=== PATIENT | female | born 1995 | race Caucasian/White ===

== ENCOUNTER → 2016-09-13 | Day surgery (SDC) | payer BC ==
[2016-06-30 11:40] VITALS: BMI 24.5
[~2016-09-13] MED LIST: CEFAZOLIN 1 GM VIAL ONE; FENTANYL 100 MCG/2 ML VIAL IV PRN; FENTANYL 100 MCG/2 ML VIAL ONE; HYDROCODONE 5 MG/ACETAMIN 325 MG TAB ONE; HYDROmorphone 1 MG INJECTION IV PRN; LABETALOL 20 MG/4 ML SYRINGE IV PRN; MEPERIDINE 25 MG/ML TUBEX IV PRN; ONDANSETRON HCL 4 MG ODT TAB PO PRN; ONDANSETRON HCL 4 MG/2 ML VIAL IV PRN; PROMETHAZINE 25 MG/ML VIAL IV PRN; hydrALAZINE 20 MG/ML VIAL IV PRN
--- NOTE | 2016-09-13 07:47 | SC.ANESPOS ---
Post-Anesthesia Note LOC: [facility] Post-Anesthesia Assessment: Awake, Returned to Baseline, Hemodynamically Stable , Pain Control Adequate Phase I & II Recovery Complete: Yes Apparent Anesthesia Complication: No : N PACU Discharge Time: 10:20 - Vital Signs Blood Pressure: 99/54 Pulse: 74 Resp Rate: 16 O2 Sat: 100 Temp: 99 F - Comments Anesthesia Discharge Time Report Time 10:20
[2016-09-13 07:48] LABS: MPV 8.3 fL (7.4-10.4)
--- NOTE | 2016-09-13 07:53 | HIM.ANES ---
Anesthesia Evaluation & Plan - Focused Review of Systems Cardiac History: No: Hx Cardiac Disorders HEENT: No: Other HEENT Problems Gastrointestinal: No: Hx Gastroesophageal Reflux Disease, Hx Gastrointestinal Disorders Neurological/Musculoskeletal: No: Hx Neurological Disorders Psychological: No Hx Depression, No Hx Mental/Emotional Disorders Blood/Autoimmune: No: Hx AIDS, Hx Hepatitis (type) Smoking Status: Never smoker - Focused Physical Exam Mallampati: Class II Thyromental Distance: Greater than 3 Neck: Full Range of Motion Dental: Normal - no significant findings Cardiovascular/Chest: Normal Respiratory: Lungs clear Any problems with anesthesia, including nausea and vomiting?: No Any relatives with a history of Malignant Hyperthermia?: No Does patient have a history of Malignant Hyperthermia?: No Beta Elba given (if appropriate): N/A Other: Problem List Problem Status Onset Hemorrhagic cyst of ovary Acute CBC/BMP/Other 09/13/16 07:36 Allergies Allergy/AdvReac Type Severity Reaction Status Date / Time No Known Allergies Allergy Verified 06/30/16 11:40 Home Medications Medication Instructions Recorded Last Taken Type ClonazePAM [Klonopin] 0.5 mg PO DAILY PRN 06/30/16 2 Weeks Ago History Hydrocodone Bit/Acetaminophen 1 tab PO Q4-6H PRN #15 tab 06/30/16 Unknown Rx [Lortab 5/325] Ibuprofen [Advil] 800 mg PO Q6H PRN 06/30/16 06/28/16 History Norethindrone-E.estradiol-Iron [Lo 1 each PO DAILY 06/30/16 06/29/16 History Loestrin Fe 1-10 Tablet] Ondansetron HCl [Zofran] 4 mg PO Q8H PRN #15 tab 06/30/16 Unknown Rx Height and Weight Patient's height 5 ft 4 in Patient's weight 143 lb BMI 24.5 - Anesthetic Plan Anesthesia Type: General ASA Class: 1 -: I have examined this patient and reviewed the medical record. The patient has been assessed prior to anesthesia. Risks and benefits of anesthesia and anesthetic technique options have been discussed and all questions answered. The patient accepts the risk and desires me to proceed with the planned anesthetic.
[2016-09-13 08:25] LABS: BLOOD UREA NITROGEN 11 MG/DL (7-17); CALCIUM 9.4 MG/DL (8.4-10.2); CALCULATED OSMOLALITY 265 MOs/Kg (270-290); CHLORIDE 101 mEq/L (98-107); GLUCOSE 90 MG/DL (70-99); SODIUM LEVEL 138 mEq/L (137-146)
--- NOTE | 2016-09-13 09:22 | HIMOPRPT ---
DESCRIPTION OF PROCEDURE: DATE OF PROCEDURE: 09/13/16 PREOPERATIVE DIAGNOSIS: Missed . POSTOPERATIVE DIAGNOSIS: Missed . PROCEDURE: Suction dilation and curettage. SURGEON: Ilda Alvarez DO ANESTHESIA: General. COMPLICATIONS: None. ESTIMATED BLOOD LOSS: 200 mL.. URINE OUTPUT: 100 mL of clear urine drained at the beginning of procedure. SPECIMENS: Products of conception. PROCEDURE IN DETAIL: The patient was taken to the operating room. She was prepped and draped in a sterile fashion. A red rubber catheter was inserted. Approximately 100 mL of clear urine was drained from the bladder. A weighted speculum was inserted. The cervix was visualized. Anterior lip of the cervix grasped with an Allis clamp. The uterus was then gently sounded to 8 cm. A size 8 curved suction curette tip was selected. Dilators were used to dilate the cervix to 8 mm, and at this time, a suction curettage was performed after checking for proper functioning of the suction apparatus. Moderate return of tissue was noted. A sharp curette was introduced. There was still felt to be tissues within the left side of cavity and the suction curettage was then repeated at this time with small return of tissue. A sharp curette was introduced one more time. At this time, the cavity was felt to be clear of tissue. Good hemostasis was noted and the procedure was ended. The Allis clamp was removed from the anterior lip of the cervix. The weighted speculum was removed. The patient was sent to recovery in stable condition
[2016-09-13 09:25] LABS: LEUKOCYTES/URINE TRACE (NEGATIVE); NITRITE/URINE NEG (NEGATIVE); URINE OCCULT BLOOD NEG (NEG/TRACE)
[2016-09-13 10:30] VITALS: TEMP 99
[2016-09-13 11:41] VITALS: PULSE 74
[2016-09-13 14:52] VITALS: BP 99/54
== END ==
LOC: SDC 07:01
PROVIDERS: ATTEND Obstetrics & Gynecology
PROC: 10D17ZZ Extraction of Products of Conception, Retained, Via Natural or Artificial Opening (ICD-10-PCS; principal; 2016-09-13 08:05)
DX: O02.1 Missed abortion (principal)
CPT/HCPCS: 59820; 80048; 81001; 85027; 86850; 86900; 86901; J0690; J3010; J3490